=== PATIENT | female | born 1975 | race Caucasian/White ===

== ENCOUNTER 2017-10-30 19:16 | Emergency (ER) | payer MEDICAID ==
[~2017-10-30] VITALS: Ht 154.9 cm; Wt 58.3 kg
[2017-10-30 20:06] LABS: BASOPHILS % (AUTO) 0.4 % (0-1); EOSINOPHILS # (AUTO) 0.2 X10'3 (0-0.9); HEMATOCRIT 24.8 % (35.0-45.0); HEMOGLOBIN 8.2 g/dl (12.0-16.0); LYMPHOCYTES # (AUTO) 2.8 X10'3 (1.1-4.8); LYMPHOCYTES % (AUTO) 35.3 % (21-51); MEAN CORPUSCULAR HEMOGLOBIN 24.9 PG (27.0-31.0); MEAN CORPUSCULAR HGB CONC 33.2 % (33.0-36.5); MEAN PLATELET VOLUME 8.6 FL (7.4-10.4); MONOCYTES # (AUTO) 0.7 X10'3 (0-0.9); MONOCYTES % (AUTO) 8.6 % (2-12); NEUTROPHILS # (AUTO) 4.3 X10'3 (1.8-7.7); NEUTROPHILS % (AUTO) 53.7 % (42-75); PLATELET COUNT 230 X10'3 (140-440); RED BLOOD COUNT 3.31 X10'6 (4.20-5.60); RED CELL DISTRIBUTION WIDTH 18.2 % (11.5-14.5)
[2017-10-30 20:11] LABS: PARTIAL THROMBOPLASTIN TIME 24 SECONDS (22-32)
[2017-10-30 20:14] LABS: ALANINE AMINOTRANSFERASE 20 U/L (12-78); ALBUMIN 3.3 G/DL (3.4-5.0); ALKALINE PHOSPHATASE 54 IU/L (46-116); ANION GAP 5 (8-16); ASPARTATE AMINO TRANSFERASE 14 U/L (10-37); BILIRUBIN,TOTAL 0.1 MG/DL (0.1-1.0); BLOOD UREA NITROGEN 18 MG/DL (7-18); CALCIUM 8.9 MG/DL (8.5-10.1); CHLORIDE 106 MMOL/L (99-107); GLUCOSE 117 MG/DL (70-104); POTASSIUM 4.1 MMOL/L (3.5-5.1); SODIUM 141 MMOL/L (135-145); TOTAL CARBON DIOXIDE 29.9 MMOL/L (24-32); TOTAL PROTEIN 6.6 G/DL (6.4-8.2); eGFR > 90 ML/MIN
[2017-10-30] MEDS ORDERED: FERR325T28 PO (20:51)
[2017-10-30] MEDS ORDERED: LORA1TAB PO (20:51)
[2017-10-30 21:05] VITALS: BP 117/64
== END 2017-10-30 21:07 | disposition home or self-care (01) ==
LOC: ER 19:17
DX: D64.9 Anemia, unspecified (principal); F41.9 Anxiety disorder, unspecified; E78.00 Pure hypercholesterolemia, unspecified; G89.29 Other chronic pain; F17.200 Nicotine dependence, unspecified, uncomplicated; Z88.0 Allergy status to penicillin
CPT/HCPCS: 36415; 71045; 80053; 84484; 85025; 85610; 85730; 93005; 99285

== ENCOUNTER 2019-09-25 09:19 | Emergency (ER) | payer MEDICAID ==
[~2019-09-25] VITALS: Ht 152.4 cm; Wt 54.5 kg
[2019-09-25] MEDS ORDERED: cephalexin 250mg capsule PO ONE (09:55)
[2019-09-25] MEDS ORDERED: LIDOcaine 1% W/epiNEPHrine 1:200,000 10ml vial IJ ONE (09:55)
[2019-09-25 10:23] VITALS: BP 141/80
[2019-09-25] MEDS ORDERED: sulfamethoxazole/trimethoprim DS (800/160mg) tablet PO SCH ×2 (10:55→20:00)
[2019-09-25] MEDS ORDERED: SULF1TAB49 PO (11:11)
[2019-09-25] MEDS ORDERED: CEPH500C5 PO (11:11)
== END 2019-09-25 12:05 | disposition home or self-care (01) ==
LOC: ER 09:19
DX: L02.416 Cutaneous abscess of left lower limb (principal); L03.116 Cellulitis of left lower limb; E78.00 Pure hypercholesterolemia, unspecified; F41.9 Anxiety disorder, unspecified; F32.9 Major depressive disorder, single episode, unspecified; Z98.890 Other specified postprocedural states; Z88.0 Allergy status to penicillin; Z88.5 Allergy status to narcotic agent; Z79.2 Long term (current) use of antibiotics
CPT/HCPCS: 10060; 99283

== ENCOUNTER 2023-04-03 12:33 | Emergency (ER) | payer MEDICAID ==
[~2023-04-03] VITALS: Ht 152.4 cm; Wt 57.4 kg
[2023-04-03 12:41] VITALS: BP 98/65
--- NOTE | 2023-04-03 13:42 | NUR ---
No boundaries staff: [place], called and left number to call when pt is discharge ready. [phone]
[2023-04-03] MEDS ORDERED: CLIN-214 PO (15:24)
[2023-04-03] MEDS ORDERED: clindamycin 150mg capsule PO ONE (15:25)
== END 2023-04-03 15:43 | disposition home or self-care (01) ==
LOC: ER 12:34
DX: S31.155A Open bite of abdominal wall, periumbilic region without penetration into peritoneal cavity, initial encounter (principal); E78.00 Pure hypercholesterolemia, unspecified; Z88.0 Allergy status to penicillin; Z88.8 Allergy status to other drugs, medicaments and biological substances; W57.XXXA Bitten or stung by nonvenomous insect and other nonvenomous arthropods, initial encounter; Y93.89 Activity, other specified; Y92.89 Other specified places as the place of occurrence of the external cause; Y99.8 Other external cause status
CPT/HCPCS: 99283